=== PATIENT | female | born 1960 | race Caucasian/White ===

== ENCOUNTER 2017-09-16 11:20 | Emergency (ER) | payer SELFPAY ==
[2017-09-16 11:28] VITALS: BP 159/70
[2017-09-16 11:58] LABS: BILIRUBIN,URINE NEGATIVE (NEGATIVE); BLOOD/HEMOGLOBIN,URINE 5+ (NEGATIVE); GLUCOSE, URINE 4+ (NEGATIVE); KETONES,URINE NEGATIVE (NEGATIVE); LEUKOCYTE ESTERASE ,URINE 1+ (NEGATIVE); NITRITES,URINE NEGATIVE (NEGATIVE); PROTEIN,URINE 3+ (NEGATIVE); UROBILINOGEN,URINE NORMAL (NORMAL)
[2017-09-16 11:59] LABS: APPEARANCE,URINE HAZY (CLEAR); COLOR,URINE YELLOW (YELLOW)
[2017-09-16 12:05] LABS: RBC,URINE TNTC /HPF (NONE SEEN)
[2017-09-16 12:06] LABS: BACTERIA,URINE TRACE /HPF (NEGATIVE); SQUAMOUS EPITHELIAL CELL,UR RARE /HPF (NEGATIVE)
--- NOTE | 2017-09-16 12:16 | DR.GENAD ---
HPI - PCP Primary Care Physician: no doctor at this time - HPI Comment HPI Comment: HISTORY KIDNEY STONE. LAST EPISODE 3 YRS AGO. NO FEVER OR DYSURIA. HAD BLOOD IN HER URINE THIS AM THAT IS CLEAR NOW. PAIN MOVING FROM LT FLANK TO LUQ OF ABDOMEN. - Complaint/Symptoms Chief Complaint Doctors Comments: LEFT FLANK PAIN, HEMATURIA FOR SEVERAL HOURS. Chief Complaint:: "left kidney pain starting this moring at 6am' - Nurses notes reviewed Nurses Notes Review: Yes - Source History Provided: Patient - Mode of Arrival Mode of Arrival: Ambulatory - Timing Onset of Chief Complaint: 09/16/17 Came on: Suddenly - Duration Duration: Constant Duration: Hours - Severity Severity: Moderate PMH - PMH Past Medical History: Yes Past Medical History: Diabetes, Hypertension, Kidney Stones Past Surgical History: Yes Past Surgical History Comment: breast surgery - Family History History of Family Medical Conditions: Yes Family Medical History: Diabetes Mellitus, Hypertension - Social History Does patient currently use any type of tobacco product: No Have you used tobacco products in the last 12 months: No Type of Tobacco Use: None Does any household member use tobacco: No Alcohol Use: None Do you use any recreational Drugs:: No Lives With: Family Lives Where: Home - infectious screening In the last 2 months have you had wt loss of >10#?: NO Have you had fever, night sweats or hemotysis?: No Have you traveled outside the country in the last 6 months?: No Isolation: Standard ROS - Review of Systems Constitutional: No Symptoms Reported Eyes: No Symptoms Reported ENTM: No Symptoms Reported Respiratoy: No Symptoms Reported Cardiovascular: No Symptoms Reported Gastrointestinal/Abdominal: Abdominal Pain, Other (LEFT FLANK PAIN) Genitourinary: Pain, Other (LT FLANK PAIN) Neurological: No Symptoms Reported Musculoskeletal: No Symptoms Reported Integumentary: No Symptoms Reported Hematologic/Lymphatic: No Symptoms Reported Endocrine: No Symptoms Reported All Other Systems: Reviewed and Negative PE - Vital Signs Vitals: Temperature 97.9 F Pulse Rate 65 Respiratory Rate 18 Blood Pressure 159/70 O2 Sat by Pulse Oximetry 99 - General Limitations: No Limitations General Appearance: Alert - Head Head Exam: Normal Inspection - Eyes Eye exam: Normal Appearance - ENT ENT Exam: Normal External Ear Exam External Ear Exam: Normal External Inspection TM/Canal Exam: Bilateral Normal Mouth Exam: Normal Inspection Throat Exam: Normal Inspection - Neck Neck Exam: Normal Inspection - Chest Chest Inspection: Symmetric Chest Wall Rise - Respiratory Respiratory Exam: Normal Lung Sounds Bilat Respiratory Exam: Bilateral Clear to Auscultation - Cardiovascular Cardiovascular Exam: Regular Rate, Normal Rhythm, Normal Heart Sounds - Abdominal Exam Abdominal Exam: Normal Bowel Sounds, Soft, Tenderness Abdominal Tenderness: LLQ, Mild - Extremities Extremities Exam: Normal Inspection - Back Back Exam: (L) CVA Tenderness - Neurologic Neurological Exam: Alert, Oriented X3 - Psychiatric Psychiatric Exam: Normal Affect, Normal Mood - Skin Skin Exam: Normal Color MDM - Differential Diagnosis Differential Diagnosis: LEFT FLANK PAIN, HEMATURIA, KIDNEY STONE. Course - Treatment Treatment: SEE ORDERS. IM TORADOL IN ED FOR PAIN. PATIENT DO NOT WISH TO DO BLOOD WORK OR ABD/PELVIC CT FOT KIDNEY STONE WORKUP. SHE SIGN AMA FORM TO INDICATE HER WISH. MACHINE EDGE BANDER DR WILL FOLLOW HER UP SHE WISH. - Education/Counseling Education/Counseling: Patient, Education Educated On: Diagnosis, Needs for Follow Up ROR - Labs Reviewed Laboratory Results Reviewed?: Yes Laboratory: Specimen Type Clean catch urine 09/16/17 11:30 Urine Color Yellow (YELLOW) 09/16/17 11:30 Urine Appearance Hazy (CLEAR) 09/16/17 11:30 Urine pH 7.0 (5.0 - 8.0) 09/16/17 11:30 Ur Specific Weaver 1.010 (1.000-1.030) 09/16/17 11:30 Urine Protein 3+ (NEGATIVE) 09/16/17 11:30 Urine Glucose (UA) 4+ (NEGATIVE) 09/16/17 11:30 Urine Ketones Negative (NEGATIVE) 09/16/17 11:30 Urine Occult Blood 5+ (NEGATIVE) 09/16/17 11:30 Urine Nitrite Negative (NEGATIVE) 09/16/17 11:30 Urine Bilirubin Negative (NEGATIVE) 09/16/17 11:30 Urine Urobilinogen Normal (NORMAL) 09/16/17 11:30 Ur Leukocyte Esterase 1+ (NEGATIVE) 09/16/17 11:30 Urine RBC Tntc /HPF (NONE SEEN) 09/16/17 11:30 Urine WBC 3-5 /HPF (NONE SEEN) 09/16/17 11:30 Ur Squamous Epith Cells Rare /HPF (NEGATIVE) 09/16/17 11:30 Urine Bacteria Trace /HPF (NEGATIVE) 09/16/17 11:30 Ur Culture Indicated? No/not indicated 09/16/17 11:30 - Diagnosis Discharge Problem: Left flank pain Hematuria Qualifiers: Hematuria type: unspecified type Qualified Code(s): R31.9 - Hematuria, unspecified - Discharge Plan Disposition: AGAINST MEDICAL ADVICE Condition: Stable Prescriptions: Tamsulosin HCl [Flomax] 0.4 mg PO DAILY #30 cap Tramadol HCl 50 mg PO TID PRN #15 tablet PRN Reason: - Follow ups/Referrals Follow ups/Referrals: PELON EGAN [STAFF PHYSICIAN] - 1 day Becky YOUNG [Primary Care Provider] - 1 day ARMANI CALHOUN [CONSULTING PHYSICIAN] - 1 day - Instructions Instructions: Flank Pain, Adult, [id number], Hematuria, Adult Additional Instructions: RETURN TO ED. DISCHARGE AMA
[2017-09-16] MEDS ORDERED: TORADOL 60 MG VIAL IM ONE (12:20)
[2017-09-16] MEDS ORDERED: TORADOL 60 MG VIAL ONE (12:27)
== END 2017-09-16 12:44 | disposition left against medical advice (07) ==
LOC: ER 11:38
DX: R31.9 Hematuria, unspecified (principal); R10.84 Generalized abdominal pain
CPT/HCPCS: 81001; 96372; 99282; J1885